=== PATIENT | male | born 1965 | race Hispanic/Latino ===

== ENCOUNTER 2017-03-06 06:31 | Day surgery (SDC) | payer OTHER ==
[2017-03-06 06:55] VITALS: BMI 30.7
[2017-03-06 07:14] VITALS: TEMP 97
[2017-03-06] MEDS ORDERED: Propofol 10 mg/ml Inj (20 ML) ONE ×2 (08:25→08:56)
[2017-03-06] MEDS ORDERED: Simethicone 40 mg/0.6 ml Liquid (30 ml) ONE (08:38)
[2017-03-06] MEDS ORDERED: Lactated Ringer's 500 ML IV SCH (08:45)
[2017-03-06 09:30] VITALS: O2SAT 97
[2017-03-06 09:58] VITALS: RESP 15
[2017-03-06 10:38] VITALS: BP 154/89; PULSE 79
== END 2017-03-06 10:14 | disposition home or self-care (01) ==
LOC: C.ENDO 06:31
PROVIDERS: ATTEND Internal Medicine Gastroenterology
DX: D12.5 Benign neoplasm of sigmoid colon (principal); K62.5 Hemorrhage of anus and rectum; K64.1 Second degree hemorrhoids
CPT/HCPCS: 45385; 88305; J2704; J3010; J7120